=== PATIENT | male | born 1955 | race Caucasian/White ===

== ENCOUNTER → 2021-05-03 11:42 | Outpatient (CLI) | payer MEDICARE, OTHER, SELFPAY | PROVIDERS: PCP Family Medicine; Visit Provider Nurse Practitioner Family | DX: I10 Essential (primary) hypertension (principal); R42 Dizziness and giddiness; R55 Syncope and collapse; R94.31 Abnormal electrocardiogram [ECG] [EKG] | CPT/HCPCS: 93270 ==

== ENCOUNTER → 2021-05-09 10:47 | Outpatient (CLI) | payer MEDICARE, OTHER, SELFPAY ==
--- NOTE | 2021-05-09 | CA_ITS ---
APPROVED REPORT Exam: Exercise Treadmill Technologist: Yadi Batista Ht: 6 ft 1 in Wt: 191 lbs BSA: 2.11 m2 HR: 64 bpm BP: 176/83 mmHg Indications: Syncope Medical History Medications: Losartan,,,,, HCTZ,,,,, Vit C,,,,, CHOLECALCIFEROL,,,,, TAdalafil,,,,, Stress Test Details Test: Rubin HR Resting HR: 71 bpm Max Heart Rate (APMHR): 153.971709 bpm Max HR Achieved: 147 bpm Target HR (85% APMHR): 130.660556 bpm % of APMHR: 96.08 Recovery HR: 90 bpm BP Resting BP: 176.0/83.0 mmHg Max BP: 195.0/104.0 mmHg Recovery BP: 140.0/107.0 mmHg ECG Resting ECG: Normal sinus rhythm Clinical Exercise duration: 08:30 min Highest Stage Achieved: Exercise capacity: 10.1 METs Stress ECG Conclusion Patient exercised 8:30 on Rubin Protocol. Test stopped due to shortness of air, fatigue. Symptoms: No chest pain. Arrhythmias/Ectopy: Occasional PVC or fusion beat. Occasional PAC. ST-T Changes: Normal ST response to exercise. Conclusion: Normal GXT. Myoview images reported separately. Test Summary REST . . . . . . . Sitting REST . . . . . . . Standing REST 05:49 0.0 0.0 71 . 176/ 83 . . Stage 1 01:00 10.0 1.7 91 . . . . Stage 1 02:00 10.0 1.7 102 . . . . Stage 1 03:00 10.0 1.7 101 . 186/ 88 . . Stage 2 01:00 12.0 2.5 113 . . . . Stage 2 02:00 12.0 2.5 118 . . . . Stage 2 03:00 12.0 2.5 124 . 192/ 86 . . Stage 3 01:00 14.0 3.4 136 . . . . Stage 3 . . . . . . . Myoview Injected Stage 3 02:00 14.0 3.4 143 . . . . Stage 3 02:30 14.0 3.4 146 . . . Stop exercise at 08:30 RECOVERY 01:00 0.0 0.0 129 . 174/ 84 . . RECOVERY 02:00 0.0 0.0 112 . 174/ 84 . . RECOVERY 03:00 0.0 0.0 101 . 195/104 . . RECOVERY 04:00 0.0 0.0 91 . 195/104 . . RECOVERY 05:00 0.0 0.0 90 . 140/107 . . RECOVERY 05:19 0.0 0.0 88 . 140/107 . . Electronically signed by : Juve Almanza MD 05/09/2021 20:05:12
--- NOTE | 2021-05-09 10:47 | NM_ITS ---
APPROVED REPORT Exam: Nuclear Stress Test Indication: syncope..abn ekg Patient Location: Outpatient Stress Tech: Yadi Batista [place] Tech:Julissa Granado INES RT(R)(N) Ht: 6 ft 1 in Wt: 195 lbs HR: 64 bpm BP: 176/83 mmHg BSA: 2.13 m2 BMI: 25.7 History: syncope..abn ekg Procedure: Patient exercised on Rubin protocol 8:30 minutes and sec, resting heart rate 64 bpm, resting blood pressure 176/83 mmHg, with exercise maximum heart rate achived was 147 bpm which is 96 % of the maximum predicted heart rate and blood pressure was 192/86 mmHg. Patient denied any complaint of chest pain. Patient has good exercise capacity, achieved 10.1 METs of workload on treadmill, the blood pressure response to exercise was Adequate. Electrocardiogram Resting electrocardiogram shows sinus rhythm, with exercise there is less than 1.[address] segment depression noted from the baseline EKG. The EKG portion of the exercise Myoview is negative for ischemia. Cardiac Stress and Resting SPECT Images: Cardiac Stress and Resting SPECT images were obtained using technetium 99m Myoview 32.9 mCi stress and 10.48 mCi at rest. Gated SPECT analysis of segmental wall motion and calculation of the ejection fraction also done. Cardiac stress and rest SPECT images show uniform myocardial activity without segmental perfusion abnormality, computer derived ejection fraction is 55% with no regional wall motion abnormality, right ventricle is normal size and contractility. Conclusion: 1. The EKG portion of the exercise Myoview is negative for ischemia, patient has good exercise capacity achieved 10.1 METs of workload on treadmill, the blood pressure response to exercise was adequate, there was no exercise-induced chest discomfort. 2. No scintigraphic evidence of reversible ischemia seen, compared right ejection fraction is 55% with no regional wall motion abnormality, right ventricle is normal size and contractility. 3. Normal exercise Myoview study. Electronically signed by : Juve Almanza MD 05/09/2021 20:13:04
--- NOTE | 2021-05-09 12:40 | CA_ITS ---
APPROVED REPORT EXAM: Comprehensive 2D, Doppler, and color-flow Echocardiogram Strategic Marketing Associate: Lianne Chaudhari CRT Ht: 6 ft 1 in Wt: 191lbs BSA: 2.11 BP: 168/88 mmHg Indications: Syncope, Hypertension/HDD, dizziness 2D Dimensions LVOT 1.94 cm (M/F) 1.5-2.5 LA Volume 54.70 mL LA Volume Index 25.90 mL/m2 (M/F) 16-34 M-Mode Dimensions RVDd 2.57 cm (0.9-2.6) LA Diam 3.52 cm (1.9-4.0) LVDd 4.17 cm (3.5-5.7) Ao Diam 4.62 cm (2.0-3.7) LVDs 2.85 cm (3.5-5.7) IVSd 1.43 cm (0.6-1.1) PWd 1.14 cm (0.6-1.1) EF (Teich) 60.00% FS 31.70% EDV (Teich) 77.30 mL ESV (Teich) 30.90 mL LV Diastology E Decel Time 257.00 (160-240 msec) E/A Ratio 0.86 MED E' 5.40 (< 7 cm/sec) MED A' 9.20 cm/s E'/MED E' Ratio 12.65 (>14) LAT E' 7.40 (<10 cm/sec) LAT A' 13.40 cm/s E/LAT E' Ratio 9.23 (>14) Aortic Valve AO Peak GR. 10.50 mmHg Mitral Valve MV A Velocity 79.00 (40-130 cm/s) E/A Ratio 0.86 MV Decel. Time 257.00 (160-240 ms) Pulmonary Valve PV Peak Velocity 158.00 (50-150 cm/s) Tricuspid Valve TR P. Velocity 237.00 cm/s Left Ventricle Left atrium is mildly enlarged, left ventricle is normal size, mild concentric left ventricular hypertrophy, visually estimated ejection fraction 55% with no regional wall motion abnormality, grade 1 diastolic dysfunction seen without tissue Doppler evidence of raise left atrial pressure. Right Ventricle Right atrium and right ventricle are normal size and contractility. Aortic Valve Aortic valve is minimally thickened and fibrosed, there is no aortic stenosis or aortic insufficiency. Mitral Valve Mitral valve is grossly normal, there is trace mitral regurgitation. Tricuspid Valve Tricuspid valve grossly normal, there is trace tricuspid regurgitation, tricuspid regurgitation jet velocity is inadequate for calculation of the right ventricular systolic pressure. Pulmonic Valve Pulmonic valve is poorly visualized. Great Vessels Aortic root is normal size. Inferior vena cava is normal size with normal inspiratory collapse. Pericardium No significant pericardial effusion noted. Conclusion 1. Mildly enlarged left atrium, normal left ventricular size, mild concentric left ventricular hypertrophy, visually estimated ejection fraction 55% with no regional wall motion abnormality, grade 1 diastolic dysfunction seen without tissue Doppler evidence of late left atrial pressure. 2. Trace mitral and tricuspid regurgitation. 3. No significant pericardial effusion noted. 4. Inferior vena cava is normal size with normal inspiratory collapse. Electronically signed by : Juve Almanza MD 05/09/2021 19:58:52
== END ==
PROVIDERS: PCP Family Medicine; Visit Provider Nurse Practitioner Family
DX: I10 Essential (primary) hypertension (principal); R42 Dizziness and giddiness; R55 Syncope and collapse; R94.31 Abnormal electrocardiogram [ECG] [EKG]
CPT/HCPCS: 78452; 93017; 93306; A9502

== ENCOUNTER → 2021-06-27 07:53 | Outpatient (CLI) | payer MEDICARE, OTHER, SELFPAY ==
--- NOTE | 2021-06-27 08:17 | CT_ITS ---
FINAL REPORT CLINICAL HISTORY: dizziness, syncope FINDINGS: Axial imaging of the head was obtained with contrast. This study was performed with techniques to keep radiation doses as low as reasonably achievable, (ALARA). Individualized dose reduction techniques using automated exposure control or adjustment of mA and/or kV according to the patient's size were employed. The ventricles are normal in size. There is no evidence of hemorrhage. No masses are identified. No extra-axial fluid is seen. The sinuses are normal. There is no acute osseous abnormality. There is no abnormal contrast enhancement. IMPRESSION: No acute intracranial abnormality. Reviewed, Interpreted and Dictated by Jaden Herrera III, MD Transcribed by Robe Haines Authenticated by Jaden Herrera III, MD on 06/27/2021 11:16:[address] [facility]
[2021-06-27 08:37] LABS: Blood Urea Nitrogen 7 mg/dl (9-20); Estimated Glomerular Filt Rate 112 ml/min (>60); GFR (African American) 136 ML/MIN (>60)
== END ==
PROVIDERS: PCP Family Medicine; Visit Provider Physician Assistant
DX: R42 Dizziness and giddiness (principal); R55 Syncope and collapse
CPT/HCPCS: 70460; 82565; 84520; Q9967